=== PATIENT | female | born 1950 | race African-American/Black ===

== ENCOUNTER 2018-03-31 08:02 | Outpatient (CLI) | payer MEDICARE ==
--- NOTE | 2018-03-31 09:00 | ULT ---
RENAL ULTRASOUND: DATE: 03/31/2018. PROVIDED CLINICAL HISTORY: Chronic kidney disease. FINDINGS: The right kidney measures about 10.4 x 6 x 4.2 cm and demonstrates no evidence for hydronephrosis or mass. The left kidney measures about 9.5 x 4.1 x 4.5 cm and demonstrates no evidence for hydronephrosis or mass. The urinary bladder appears sonographically unremarkable. Prevoid bladder volume is approximately 12 1 cc. Postvoid bladder volume is less than 1 cc. IMPRESSION: No evidence for hydronephrosis. POS: [facility]
== END 2018-03-31 08:03 | disposition home or self-care (01) ==
LOC: MADULT 08:02
PROVIDERS: ATTEND Internal Medicine Nephrology
DX: N18.3 Chronic kidney disease, stage 3 (moderate) (principal)
CPT/HCPCS: 76770

== ENCOUNTER 2022-09-23 13:55 | Outpatient (CLI) | payer MEDICARE | END 2022-09-23 13:56 | disposition home or self-care (01) | LOC: MADLAB 13:55 | PROVIDERS: ATTEND Physician Assistant | DX: M25.551 Pain in right hip (principal); M47.816 Spondylosis without myelopathy or radiculopathy, lumbar region | CPT/HCPCS: 72100 ==

== ENCOUNTER 2024-05-23 01:01 | Emergency (ER) | payer MEDICARE ==
[2024-05-23] MEDS ORDERED: Amoxicillin/Potassium Clav 875 MG TAB ONE (01:23)
== END 2024-05-23 01:33 | disposition home or self-care (01) ==
LOC: MADERS 01:01
DX: J01.90 Acute sinusitis, unspecified (principal); H65.92 Unspecified nonsuppurative otitis media, left ear; H92.11 Otorrhea, right ear
CPT/HCPCS: 99283